=== PATIENT | female | born 1990 | race Asian ===

== ENCOUNTER 2017-06-10 21:55 | Emergency (ER) | payer BC, OTHER ==
[2017-06-10] MEDS ORDERED: Oseltamivir 75 MG CAP PO SCH (23:45)
== END 2017-06-11 00:37 | disposition home or self-care (01) ==
LOC: ERS 21:55
DX: O99.513 Diseases of the respiratory system complicating pregnancy, third trimester (principal); J11.1 Influenza due to unidentified influenza virus with other respiratory manifestations; Z3A.39 39 weeks gestation of pregnancy; Z79.899 Other long term (current) drug therapy
CPT/HCPCS: 99283

== ENCOUNTER 2017-06-17 06:49 | Inpatient (IN) | payer BC, MEDICAID ==
[2017-06-17 07:29] VITALS: BMI 42.2
[2017-06-17] MEDS ORDERED: Ondansetron HCl/PF 4 MG/2 ML Vial IVP PRN ×3 (09:14→14:25)
[2017-06-17] MEDS ORDERED: Sodium Chloride 0.9% 1,000 ML IV SCH (09:15)
[2017-06-17] MEDS ORDERED: Morphine 4 MG/ML Carpuject SLOW IVP SCH (09:15)
[2017-06-17] MEDS ORDERED: Morphine 10 MG/ML VIAL ONE (09:48)
[2017-06-17] MEDS ORDERED: LR / Pitocin 40 units/1000 ml 1,000 ML IV PRN (11:01)
[2017-06-17] MEDS ORDERED: Lidocaine 1% (PF) 30 ML VIAL SC PRN (11:01)
[2017-06-17] MEDS ORDERED: Penicillin G Potassium 5 MILL.UNITS in Sodium Chloride 0.9% 100 ML IVPB SCH (11:15)
[2017-06-17] MEDS ORDERED: Penicillin G Potassium 5 MILL.UNITS VIAL ONE (11:15)
[2017-06-17] MEDS ORDERED: Lactated Ringer's 1,000 ML IV SCH (11:15)
[2017-06-17 11:24] LABS: Hemoglobin 11.7 g/dL (12.0-16.0); Mean Corpuscular Hemoglobin 29.8 pg (27.0-31.0); Mean Corpuscular Volume 90.3 fl (81.0-99.0); Platelet Count 261 thou/uL (130-400); RBC Distribution Width 14.3 % (11.5-14.5); Red Blood Cell (RBC) Count 3.92 mill/uL (4.20-5.40); White Blood Cell (WBC) Count 9.8 thou/uL (4.8-10.8)
[2017-06-17 11:50] LABS: Syphilis Antibody Nonreactive (Nonreactive); Syphilis Antibody Index 0.04 S/CO (<1.00 Non-Reactive)
[2017-06-17 11:51] LABS: HBSAg Index 0.45 S/CO (0-0.99); Hep B Surf Ag Non-Reactive S/CO (NonReactive)
[2017-06-17] MEDS: LR / Pitocin 40 units/1000 ml 1,000 ML IV SCH ×2 (14:07→15:13)
[2017-06-17] MEDS ORDERED: Bisacodyl 10 MG SUPP PR PRN (14:25)
[2017-06-17] MEDS ORDERED: Benzocaine/Menthol 20-0.5% 60 ML CAN TOP PRN (14:25)
[2017-06-17] MEDS ORDERED: Preparation H Ointment 28 GM TUBE PR PRN (14:25)
[2017-06-17] MEDS ORDERED: Lanolin Ointment 7 GM TUBE TOP PRN (14:25)
[2017-06-17] MEDS ORDERED: Acetaminophen/Codeine 30-300mg Tablet PO PRN (14:25)
[2017-06-17] MEDS ORDERED: Milk Of Magnesia 30 ML UDCUP PO PRN (14:25)
[2017-06-17] MEDS ORDERED: diphenhydrAMINE 25 MG CAP PO PRN (14:25)
[2017-06-17] MEDS: Ibuprofen 800 MG TAB PO SCH ×2 (14:33→22:03)
[2017-06-17] MEDS ORDERED: Penicillin G 2.5 MILL.units 2.5 MILL.UNITS in Premix Bag 1 BAG IVPB SCH (16:00)
[2017-06-17] MEDS: Ferrous Sulfate 325 MG TAB PO SCH (17:53)
[2017-06-17] MEDS: HYDROcodone/Acetaminophen 5/325 mg Tablet PO PRN (18:00)
[2017-06-17] MEDS: Docusate Calcium (SURFAK) 240 MG CAP PO SCH (22:03)
[2017-06-18] MEDS: HYDROcodone/Acetaminophen 5/325 mg Tablet PO PRN (00:15)
[2017-06-18] MEDS: Ibuprofen 800 MG TAB PO SCH ×3 (05:15→22:15)
[2017-06-18] MEDS: Ferrous Sulfate 325 MG TAB PO SCH ×2 (09:11→18:32)
[2017-06-18] MEDS: Docusate Calcium (SURFAK) 240 MG CAP PO SCH ×2 (09:11→22:15)
[2017-06-18] MEDS: Prenatal Vitamin 1 TAB PO SCH (09:12)
[2017-06-19] MEDS: Ibuprofen 800 MG TAB PO SCH (05:54)
[2017-06-19 08:05] VITALS: BP 116/66; TEMP 98
[2017-06-19] MEDS: Ferrous Sulfate 325 MG TAB PO SCH (09:05)
[2017-06-19] MEDS: Prenatal Vitamin 1 TAB PO SCH (09:05)
[2017-06-19] MEDS: Docusate Calcium (SURFAK) 240 MG CAP PO SCH ×2 (09:05→09:06)
== END 2017-06-19 10:55 | disposition home or self-care (01) | DRG 775 ==
LOC: L&D/OP 06:49 → L&D 11:24 → 3SW 17:02
PROVIDERS: ADMIT Family Medicine; ATTEND Family Medicine
PROC: 10E0XZZ Delivery of Products of Conception, External Approach (ICD-10-PCS; principal; 2017-06-17)
DX: O99.824 Streptococcus B carrier state complicating childbirth (principal); Z37.0 Single live birth; Z3A.39 39 weeks gestation of pregnancy
CPT/HCPCS: 85027; 86780; 87340; 99285; J2001; J2270; J2405; J2540; J7050